=== PATIENT | female | born 1960 | race Two or more races ===

== ENCOUNTER → 2019-01-30 | Outpatient (CLI) | payer OTHER | END | disposition home or self-care (01) | LOC: TOM 08:15 | DX: R07.89 Other chest pain (principal); D71 Functional disorders of polymorphonuclear neutrophils ==

== ENCOUNTER → 2020-07-31 | Outpatient (CLI) | payer OTHER | END | disposition home or self-care (01) | LOC: TOM 10:00 | PROVIDERS: ATTEND Specialist | DX: R10.13 Epigastric pain (principal); E04.2 Nontoxic multinodular goiter; R63.4 Abnormal weight loss ==

== ENCOUNTER 2023-12-16 07:16 | Outpatient (CLI) | payer OTHER | END 2023-12-16 07:24 | disposition home or self-care (01) | LOC: TOM 07:16 | PROVIDERS: ATTEND General Practice | DX: R10.0 Acute abdomen (principal) | CPT/HCPCS: 74177; Q9965 ==